=== PATIENT | female | born 1980 | race African-American/Black ===

== ENCOUNTER 2017-10-16 23:56 | Emergency (ER) | payer SELFPAY ==
[2017-10-17] MEDS ORDERED: Ibuprofen 800 MG TAB ONE (01:21)
== END 2017-10-17 01:22 | disposition home or self-care (01) ==
LOC: ERS 23:56
DX: L03.221 Cellulitis of neck (principal); E66.9 Obesity, unspecified; J45.909 Unspecified asthma, uncomplicated
CPT/HCPCS: 36416; 99283

== ENCOUNTER 2017-11-06 18:28 | Emergency (ER) | payer SELFPAY | END 2017-11-06 19:14 | disposition left against medical advice (07) | LOC: ERS 18:28 | DX: Z53.21 Procedure and treatment not carried out due to patient leaving prior to being seen by health care provider (principal) ==

== ENCOUNTER 2017-11-13 12:18 | Inpatient (IN) | payer MEDICAID, SELFPAY ==
[2017-11-13] MEDS ORDERED: Albuterol Sulfate 2.5 mg/0.5 ml Neb ONE (12:51)
[2017-11-13] MEDS ORDERED: Albuterol Sulfate 2.5 mg/3 ml Neb ONE (12:51)
[2017-11-13] MEDS ORDERED: methylPREDNISolone Sod Succ/PF 125 MG/2 ML VIAL ONE (12:53)
[2017-11-13 13:18] LABS: Hemoglobin 13.9 g/dL (12.0-16.0); Mean Corpuscular HGB CONC 32.1 g/dL (32.0-36.0); Mean Corpuscular Volume 87.3 fl (81.0-99.0); Mean Platelet Volume 7.6 fL (7.4-10.4); Platelet Count 327 thou/uL (130-400); Red Blood Cell (RBC) Count 4.94 mill/uL (4.20-5.40)
[2017-11-13 13:29] LABS: ALT (SGPT) 19 U/L (8-55); AST (SGOT) 24 U/L (5-34); Albumin 3.9 g/dL (3.5-5.0); Alkaline Phosphatase 84 U/L (40-150); Anion Gap 12 mmol/L (10-20); BUN (Urea Nitrogen) 12 mg/dL (7.0-18.7); Bilirubin, Total 0.3 mg/dL (0.2-1.2); Calc. Creatinine Clearance 0 mL/min (70-130); Calcium 9.2 mg/dL (7.8-10.44); Carbon Dioxide 25 mmol/L (22-29); Chloride 104 mmol/L (98-107); Estimated GFR-MDRD Greater than 90; Globulin 3.7 g/dL (2.4-3.5); Glucose 91 mg/dL (70-105); Potassium 4.1 mmol/L (3.5-5.1); Protein, Total 7.6 g/dL (6.0-8.3); Sodium 137 mmol/L (136-145)
--- NOTE | 2017-11-13 13:33 | RAD ---
CHEST 1 VIEW: HISTORY: A 37-year-old female with a history of shortness of breath. And dyspnea. COMPARISON: 03/26/17. FINDINGS: There is some bilateral vascular congestion. There are some patchy linear and interstitial parenchym al changes in the perihilar regions bilaterally, somewhat more prominent in the left suprahilar regio n raising concern for the possibility of some early pneumonia or pneumonitis. Heart size is within n ormal limits. No overt pleural effusion. IMPRESSION: Some bilateral vascular congestion. Increased markings in the left suprahilar region raising concern for minimal or early pneumonia or pneumonitis. Correlate clinically. Consider short-term followup upright PA and lateral chest for further assessment. POS: OFF
[2017-11-13 13:43] LABS: Band 1 % (5-11); Lymphocytes 14 % (21-51); MDiff Complete? YES; Monocytes 8 % (0-10); Neutrophil 77 % (42-75); PLT Morphology Comment Appears Adequate
[2017-11-13] MEDS ORDERED: Azithromycin 250 MG TAB ONE (13:56)
--- NOTE | 2017-11-13 15:38 | CON ---
DATE OF CONSULTATION: 11/13/2017 EMERGENCY ROOM CONSULTATION PRIMARY CARE PHYSICIAN: Tony Dorantes. REASON FOR CONSULTATION: Asthma exacerbation. HISTORY OF PRESENT ILLNESS: A 37-year-old -Serbian female, who has underlying morbid obesity and mild persistent asthma, who came to the emergency room for the last 2 days increasing shortness of breath associated with cough productive of white sputum. She was also having wheezing, especially during nighttime. She was also having cough, which was getting worse during nighttime. She was als o feeling more shortness of breath during nighttime. On exertion and while walking, she was feeling wheezing and she was feeling chest tightness. She was also having a subjective low-grade fever. She denies any flu-like illness. She denies any sick exposures. She denies any nausea, vomiting, or di arrhea. She does not have any palpitation, dizziness or syncope. She denies any calf tenderness. S he denies any pleuritic chest pain. She denies any constipation, diarrhea, melena or hematochezia. The patient reports that normally she uses her inhaler and nebulizer medication, but she ran out all medication and that is why she was getting worse. In the emergency room, this patient was saturating 95% on room air. She was able to talk in full sen tences. She was tachycardic after breathing treatment in the emergency room. She was hemodynamicall y stable. Chest x-ray showed left upper lobe infiltration and suspected for community-acquired pneumonia and th at is why the patient has received Rocephin and azithromycin in the emergency room. The patient is a lso given Solu-Medrol 125 mg, IV fluid 1 liter, DuoNeb therapy, and Proventil nebulization therapy. ER physician decided to admit this patient in the hospital for asthma exacerbation and community-acqu ired pneumonia. When I saw this patient in the emergency room, the patient was completely comfortabl e. She was able to talk in full sentences. She was saturating normal. The patient has 3 kids who a re very small and she needs to take care of them at home and she does not have any technical services analyst and the patient does not want to stay in hospital. I explained to her that it is possible that her asthma can get worse and she may end up with respirat ory distress and required intubation, but she is expressing her wish that she will go home with the m edication and she will try oral medication. If she does not feel well, then she will try to come karri k to the emergency room later on. At this point in the emergency room, I decided to send her home with all new medication as above and sent prescription to Lisa at [facility] in [place] and explained her to come back if her condition d oes not improve. REVIEW OF SYSTEMS: The following complete review of systems was negative, unless otherwise mentioned in the HPI or below: Constitutional: Weight loss or gain, ability to conduct usual activities. Skin: Rash, itching. Eyes: Double vision, pain. ENT/Mouth: Nose bleeding, neck stiffness, pain, tenderness. Cardiovascular: Palpitations, dyspnea on exertion, orthopnea. Respiratory: Shortness of breath, wheezing, cough, hemoptysis, fever or night sweats. Gastrointestinal: Poor appetite, abdominal pain, heartburn, nausea, vomiting, constipation, or diarr hea. Genitourinary: Urgency, frequency, dysuria, nocturia. Musculoskeletal: Pain, swelling. Neurologic/Psychiatric: Anxiety, depression. Allergy/Immunologic: Skin rash, bleeding tendency. Please see my HPI for pertinent positives and negatives. All other review of systems reviewed and ne gative except as mentioned in the HPI. ALLERGIES: No known drug allergy. CURRENT HOME MEDICATIONS: The patient is supposed to be on Ventolin nebulization q.4 hourly, Provent il HFA 2 puffs q.4 hourly, Pulmicort Flexhaler 2 puffs inhalation b.i.d., but she ran out all medicat ion. She does not have any medication at this point at home. PAST MEDICAL HISTORY: Morbid obesity, mild persistent asthma. PAST SURGICAL HISTORY: x3. PAST PSYCHIATRIC HISTORY: Reviewed and negative. SOCIAL HISTORY: The patient is smoking variable quantity of cigarette on a daily basis. She denies any alcohol abuse. She denies any illicit drug abuse. FAMILY HISTORY: No strong family history of premature coronary artery disease, stroke or cancer. EMERGENCY ROOM COURSE: The patient has received Rocephin, azithromycin, Solu-Medrol 125 mg, IV fluid s, DuoNeb therapy, and albuterol nebulization. PHYSICAL EXAMINATION: GENERAL: When I saw this patient, at the time, the patient is no acute distress, able to talk in ful l sentences. No accessory muscles of respiration in use. The patient is currently alert, awake, in no obvious acute distress. VITALS SIGNS: Blood pressure 137/86, pulse 103, respiratory rate 22, temperature 99.4, saturation 95 % on room air, weight 121.5 kilograms. HEENT: Head: Normocephalic, atraumatic. Eyes: Pupils round, reactive to light. Extraocular muscl es are intact. ENT: Oropharynx within normal limits. Moist mucous membranes. No oral lesions. No pharyngeal erythema, no exudate. NECK: Supple, no JVD, no thyromegaly, no carotid bruit. LUNGS: Few end expiratory wheezing heard, but no rhonchi and no rales. CARDIAC: S1, S2 regular. No murmur, no gallop, no rub. Slight tachycardia. Chest wall, no accesso ry muscles of respiration in use. ABDOMEN: Morbid obesity limiting examination. No suprapubic tenderness, no peritoneal sign, no guar ding, no rigidity, no rebound. BACK: Unremarkable, no CVA tenderness. EXTREMITIES: Upper extremities: Passive movements of all joints are normal. Lower extremities: No edema. Good peripheral pulsation. SKIN: No skin rash. HEMATOLOGIC: No lymphadenopathy. PSYCHIATRIC: Normal affect. SIGNIFICANT LABORATORY DATA: Chest x-ray showing left upper lobe infiltration, pulmonary vascular co ngestion. CBC: WBC 10.0, hemoglobin 13.9, platelets 327 with 1 band. BMP: Sodium 137, potassium 4 .1, chloride 104, carbon dioxide 25, anion gap 12, BUN 12, creatinine 0.71, glucose 91, calcium 9.2. LFT: AST 24, ALT 19, alkaline phosphatase 84, albumin 3.9, and lactic acid 0.9. IMPRESSION: 1. Acute asthma exacerbation, mild, in view of mild persistent asthma likely precipitated by underly ing community-acquired pneumonia. 2. Mild community-acquired pneumonia. 3. Morbid obesity. 4. Tobacco abuse disorder. PLAN: I discussed with the patient about the importance of staying in the hospital, so we can treat her at least observation status versus inpatient status for the next day or two with Solu-Medrol, Duo Neb therapy, and empiric antibiotic therapy, but this patient does not have anybody to take care of h er kids and that is why she prefers to go home. I explained her risk of respiratory distress and com ing back with worse situation, but she expressed her wish to go home with a prescription medication. Per her request, I am prescribing Pulmicort Flexhaler, albuterol nebulization solution for her nebul izer machine and prednisone 40 mg p.o. daily for 7 days and Levaquin 750 mg p.o. daily for 7 days angelito ng with Mucinex 600 mg twice daily for 7 days. The patient is given counseling to avoid smoking. Th e patient is also given education about if her condition does not improve with this treatment, then s he should returned back to the emergency room for admission. I explained at length to stay in the hospital, but she does not want to stay in the hospital and that is why per her request, we decided to discharge her from the emergency room. At this point, the pat ient is also stable in the form of she is not in respiratory distress. Her saturation is normal on r oom air and she is able to talk in full sentences. We are hoping that with outpatient treatment, she will improve and I advised her to follow up with primary care physician for repeat chest x-ray to se e clearance of pneumonia. Deep venous thrombosis prophylaxis not needed because we are planning to discharge from the ER. Jagruti rointestinal prophylaxis not needed because we are planning to discharge from ER and the patient is a dvised to use Pepcid [id number] on a p.r.n. basis. CODE STATUS: The patient is a FULL CODE. She does not have any surrogate decision maker. DISPOSITION PLAN: We were consulted from ER for admission, but we decided [facility].
== END 2017-11-13 14:54 | disposition home or self-care (01) | DRG 194 ==
LOC: ERS 12:18 → ERHOLD 14:00
PROVIDERS: ADMIT Internal Medicine; ATTEND Internal Medicine
DX: J18.9 Pneumonia, unspecified organism (principal); J45.31 Mild persistent asthma with (acute) exacerbation; E66.01 Morbid (severe) obesity due to excess calories; Z79.51 Long term (current) use of inhaled steroids; F17.210 Nicotine dependence, cigarettes, uncomplicated
CPT/HCPCS: 36415; 71045; 80053; 83605; 85025; 87040; 94640; 94644; 96361; 96374; 96375; J0696; J2930; J7611; J7620

== ENCOUNTER 2018-10-14 04:53 | Emergency (ER) | payer MEDICAID, OTHER | END 2018-10-14 07:42 | disposition home or self-care (01) | LOC: ERS 04:53 | DX: G89.29 Other chronic pain (principal); M54.5 Low back pain; J45.909 Unspecified asthma, uncomplicated; F17.210 Nicotine dependence, cigarettes, uncomplicated | CPT/HCPCS: 99283 ==

== ENCOUNTER 2018-10-19 01:11 | Emergency (ER) | payer OTHER ==
[2018-10-19] MEDS ORDERED: Fluorescein Opthalmic Strip ONE (02:08)
[2018-10-19] MEDS ORDERED: Proparacaine 0.5% Opth 15 ML BOT ONE (02:08)
== END 2018-10-19 02:45 | disposition home or self-care (01) ==
LOC: ERS 01:11
DX: H10.9 Unspecified conjunctivitis (principal); J45.909 Unspecified asthma, uncomplicated; F17.210 Nicotine dependence, cigarettes, uncomplicated
CPT/HCPCS: 99283

== ENCOUNTER 2018-10-24 00:46 | Emergency (ER) | payer OTHER ==
[2018-10-24] MEDS ORDERED: cefTRIAXone\\ROCEPHIN 1 GM VIAL ONE (02:05)
[2018-10-24] MEDS ORDERED: Lidocaine 1% PF 5 ML VIAL ONE (02:05)
== END 2018-10-24 02:35 | disposition home or self-care (01) ==
LOC: ERS 00:46
DX: J45.909 Unspecified asthma, uncomplicated (principal); F17.210 Nicotine dependence, cigarettes, uncomplicated; L03.213 Periorbital cellulitis
CPT/HCPCS: 96372; J0696; J2001

== ENCOUNTER 2019-01-29 23:47 | Inpatient (IN) | payer OTHER ==
[2019-01-29] MEDS ORDERED: Ondansetron ODT 4 MG TAB ONE (23:53)
[2019-01-30] MEDS ORDERED: Morphine 4 MG/ML VIAL ONE (00:12)
[2019-01-30] MEDS ORDERED: Ketorolac Tromethamine 30 MG/ML VIAL ONE (00:12)
[2019-01-30] MEDS ORDERED: Ondansetron PF 4 MG/2 ML Vial ONE (00:13)
[2019-01-30 00:18] LABS: #Basophils 0.1 thou/uL (0.0-0.2); #Eosinphils 0.3 thou/uL (0.0-0.7); #Lymphocytes 3.5 thou/uL (1.20-3.40); #Neutrophils 6.5 thou/uL (1.40-6.50); %Basophils 0.8 % (0.0-1.0); %Eosinophils 2.8 % (0.0-10.0); %Lymphocytes 30.9 % (21.0-51.0); %Monocytes 9.1 % (0.0-10.0); %Neutrophils 56.5 % (42.0-75.0); Hemoglobin 13.8 g/dL (12.0-16.0); Mean Corpuscular HGB CONC 31.9 g/dL (32.0-36.0); Mean Corpuscular Volume 87.7 fL (78.0-98.0); Mean Platelet Volume 7.4 fL (7.4-10.4); Platelet Count 337 thou/uL (130-400); RBC Distribution Width 13.4 % (11.5-14.5); Red Blood Cell (RBC) Count 4.92 mill/uL (4.20-5.40); White Blood Cell (WBC) Count 11.5 thou/uL (4.8-10.8)
[2019-01-30 00:22] LABS: BHCG - Serum Negative (NEGATIVE); Pregs Control Background? CLEAR/WHITE (CLR/WHITE); Pregs Control Bar Appear? YES (CONTROL BAR)
[2019-01-30 00:30] LABS: ALT (SGPT) 12 U/L (8-55); AST (SGOT) 14 U/L (5-34); Albumin 3.8 g/dL (3.5-5.0); Alkaline Phosphatase 80 U/L (40-150); Anion Gap 12 mmol/L (10-20); BUN (Urea Nitrogen) 12 mg/dL (7.0-18.7); Bilirubin, Total 0.3 mg/dL (0.2-1.2); Calc. Creatinine Clearance 0 mL/min (70-130); Calcium 9.1 mg/dL (7.8-10.44); Carbon Dioxide 23 mmol/L (22-29); Chloride 108 mmol/L (98-107); Estimated GFR-MDRD Greater than 90; Globulin 3.5 g/dL (2.4-3.5); Glucose 113 mg/dL (70-105); Lipase 24 U/L (8-78); Potassium 3.7 mmol/L (3.5-5.1); Protein, Total 7.3 g/dL (6.0-8.3); Sodium 139 mmol/L (136-145)
[2019-01-30] MEDS ORDERED: Piperacillin/Tazobactam 4.5 GM VIAL ONE (02:26)
--- NOTE | 2019-01-30 04:18 | RAD ---
XR Chest 1 View Portable HISTORY: Preop COMPARISON: 11/03/2017 study FINDINGS: Heart size is borderline. There are linear parenchymal changes extending from the left hilu m which may represent scar. No confluent infiltrative process seen. IMPRESSION: Borderline heart size with linear parenchyma changes extending from the left hilum consis tent with atelectasis or scar
--- NOTE | 2019-01-30 07:30 | CT ---
ABDOMEN AND PELVIS CT WITHOUT CONTRAST: INDICATION: Abdominal pain, new onset with nausea, vomiting, and diarrhea. FINDINGS: No prior comparison available. There is mosaic attenuation of the imaged lung bases, nonspecific and incompletely evaluated. There is marked prominence of the gallbladder wall with associated increased density and evidence of architectural intern al rim calcification indicative of cholelithiasis. Additional underlying pathology such as mass haile ot be entirely excluded on the basis of this exam and should be further interrogated with a gallbladd er ultrasound, particularly in light of the associated clinical symptoms. Noncontrast assessment reveals no evidence of urolithiasis or obstructive uropathy. Several scattere d nonspecific borderline-sized retroperitoneal lymph nodes are seen predominantly in the aortocaval d istribution. The remainder of the abdominal and pelvic contents are limited in assessment on the bas is of noncontrast technique. No evidence of acute osseous pathology. No free air. There is a bowel containing hernia of the ventral low abdominal wall at midline, containing noninflam ed bowel. IMPRESSION: 1. Marked abnormality of the gallbladder as above. Dedicated gallbladder ultrasound is warranted. 2. No urolithiasis or obstructive uropathy. 3. Bowel containing hernia of the ventral low abdominal wall, at the midline without associated infl ammation identified by noncontrast technique. CODE T POS: RACHANA
--- NOTE | 2019-01-30 07:40 | ULT ---
GALLBLADDER ULTRASOUND: INDICATION: Abdominal pain with nausea, vomiting, and diarrhea new onset. COMPARISON: Reference is made to preceding CT abdomen and pelvis of 01/30/2019 as well as a prior ultrasound of the gallbladder 04/12/2009. FINDINGS: There is multifocal increased echogenicity within the gallbladder lumen. The gallbladder wall is bor derline approximating 3 mm in thickness. Slight degree of pericholecystic edema is present. There i s prominent volume of the liver with increased echogenicity which may be on the basis of hepatic stea tosis. Dunne's sign reported as negative by flavoring oil filterer. The common duct is normal measuring 3 mm i n diameter. IMPRESSION: Multifocal cholelithiasis. There is borderline-sized gallbladder wall and suggestion of a slight deg ree of pericholecystic edema. Recommend clinical correlation for evidence of cholecystitis. Surgica l consultation would also prove useful in this regard. If there is concern for acute cystic duct obs truction, nuclear medicine HIDA scan would prove beneficial. POS: RACHANA
== END 2019-01-30 05:30 | disposition left against medical advice (07) | DRG 446 ==
LOC: ERS 23:47 → SURG B 01-30 03:30
PROVIDERS: ADMIT Surgery; ATTEND Surgery
DX: K81.0 Acute cholecystitis (principal); J45.909 Unspecified asthma, uncomplicated; Z98.51 Tubal ligation status
CPT/HCPCS: 36415; 71045; 74176; 76705; 80053; 83690; 84703; 85025; 93005; J1885; J2270; J2405; J2543; Q0162

== ENCOUNTER 2019-01-31 15:25 | Inpatient (IN) | payer OTHER ==
--- NOTE | 2019-01-31 16:09 | RAD ---
EXAM: CHEST ONE VIEW: 01/31/19 HISTORY: Chest pain. COMPARISON: 01/30/19. FINDINGS: Upper range of normal sized heart with some minimal linear parenchymal changes in the left mid lung z one, stable. No confluent pneumonia, overt edema, or pleural effusion. IMPRESSION: Stable chest. POS: C
[2019-01-31 16:21] LABS: #Basophils 0.1 thou/uL (0.0-0.2); #Eosinphils 0.3 thou/uL (0.0-0.7); #Lymphocytes 2.9 thou/uL (1.20-3.40); #Monocytes 1.1 thou/uL (0.11-0.59); #Neutrophils 10.8 thou/uL (1.40-6.50); %Basophils 0.4 % (0.0-1.0); %Lymphocytes 18.9 % (21.0-51.0); %Neutrophils 71.7 % (42.0-75.0); Hemoglobin 13.1 g/dL (12.0-16.0); Mean Corpuscular HGB CONC 32.4 g/dL (32.0-36.0); Mean Corpuscular Hemoglobin 28.3 pg (27.0-31.0); Mean Corpuscular Volume 87.3 fL (78.0-98.0); Mean Platelet Volume 7.7 fL (7.4-10.4); Platelet Count 322 thou/uL (130-400); RBC Distribution Width 13.4 % (11.5-14.5); Red Blood Cell (RBC) Count 4.63 mill/uL (4.20-5.40)
[2019-01-31] MEDS ORDERED: Ondansetron PF 4 MG/2 ML Vial ONE (16:27)
[2019-01-31] MEDS ORDERED: Piperacillin/Tazobactam 4.5 GM VIAL ONE (16:27)
[2019-01-31] MEDS ORDERED: Morphine 4 MG/ML VIAL ONE (16:27)
[2019-01-31 16:33] LABS: ALT (SGPT) 12 U/L (8-55); AST (SGOT) 13 U/L (5-34); Albumin 3.8 g/dL (3.5-5.0); Alkaline Phosphatase 78 U/L (40-150); Anion Gap 13 mmol/L (10-20); BUN (Urea Nitrogen) 6 mg/dL (7.0-18.7); Bilirubin, Total 0.6 mg/dL (0.2-1.2); Calc. Creatinine Clearance 0 mL/min (70-130); Calcium 9.1 mg/dL (7.8-10.44); Carbon Dioxide 22 mmol/L (22-29); Chloride 106 mmol/L (98-107); Estimated GFR-MDRD Greater than 90; Globulin 3.4 g/dL (2.4-3.5); Glucose 110 mg/dL (70-105); Potassium 3.5 mmol/L (3.5-5.1); Protein, Total 7.2 g/dL (6.0-8.3); Sodium 137 mmol/L (136-145)
[2019-01-31 16:50] LABS: Bilirubin Negative (Negative); Blood, Urine Trace (Negative); Clarity CLEAR (Clear); Glucose, Urine (Dipstick) Negative (Negative); Leukocyte Negative (Negative); Nitrite Negative (Negative); Protein, Urine (Dipstick) Negative (Neg-Trace); Specific Gravity, Urine 1.014 (1.002-1.036)
[2019-01-31 16:52] LABS: Bacteria/HPF None Seen HPF (None Seen); Hyaline Casts/LPF 0-3 HYALINE CAST LPF (0-3 Hyaline); Squamous Epithelial 0-3 HPF (0-3); WBC/HPF 0-3 HPF (0-3)
[2019-01-31] MEDS ORDERED: Bupivacaine/Epinephrine 0.25% 30 ML VIAL ONE (17:24)
--- NOTE | 2019-01-31 18:08 | HP ---
CHIEF COMPLAINT: Right upper quadrant abdominal pain with nausea and vomiting. HISTORY OF PRESENT ILLNESS: The patient is a morbidly obese 38-year-old black female. She presented to the emergency room the night before last, complaining of severe upper abdominal pain. She had evaluation with CT scan and ultrasound revealing cholelithiasis with no evidence of ductal dilatation. Liver function tests were normal, but she had slight elevation of white blood cell count. She was felt to be stable for discharge to follow up for outpatient surgery. Unfortunately, today she developed progressive abdominal pain with nausea. She presented to the emergency room for further evaluation. LABORATORY STUDIES: Revealed her white blood cell count has gone up further to 15,000, hemoglobin is stable at 13. Liver function tests remain normal as all her electrolytes. PAST MEDICAL HISTORY: Significant for morbid obesity. PAST SURGICAL HISTORY: Three C sections and one tubal ligation. MEDICATIONS: None. ALLERGIES: NO KNOWN DRUG ALLERGIES. PERSONAL SOCIAL HISTORY: She is single with 4 children. She lives in [place]. She smokes 1/2 pack per day of cigarettes. She does not work outside the house. Her primary care physician is Elizabeth Walker. FAMILY HISTORY: Noncontributory. REVIEW OF SYSTEMS: Ten system review was obtained, is otherwise unremarkable. PHYSICAL EXAMINATION: VITAL SIGNS: She is afebrile. Currently appeared her pulse is slightly elevated at 100. Her blood pressure is within normal limits. GENERAL: She is a well-developed, well-nourished, obese female. She is 5 feet 2 inches tall and weighs 250 pounds. She is alert and oriented x3, and cooperative. Multiple family members are present at bedside. HEAD, EYES, EARS, NOSE, AND THROAT: Unremarkable. NECK: Supple without mass or tenderness. LUNGS: Clear to auscultation throughout. CARDIAC: Regular rate and rhythm without murmur. ABDOMEN: Soft with focal tenderness in the right upper quadrant. She has a well-healed midline abdominal incision. EXTREMITIES: Unremarkable. ASSESSMENT: The patient with acute cholecystitis. PLAN: Laparoscopic cholecystectomy. I have discussed the operation in detail with the patient as well as potential risks. She understands and agrees to proceed with surgery at this time. Job ID: [id number]
[2019-01-31] MEDS ORDERED: Fentanyl 100 MCG/2 ML VIAL ONE ×2 (18:18→20:51)
[2019-01-31] MEDS ORDERED: SUGAMMADEX SODIUM 200 MG/2 ML VIAL ONE (19:55)
[2019-01-31] MEDS ORDERED: Ketorolac Tromethamine 30 MG/ML VIAL ONE (20:51)
--- NOTE | 2019-02-01 07:12 | OP ---
DATE OF PROCEDURE: 01/31/2019 PREOPERATIVE DIAGNOSIS: Acute cholecystitis. POSTOPERATIVE DIAGNOSIS: Acute cholecystitis with extensive midline abdominal adhesions. OPERATION PERFORMED: Laparoscopic cholecystectomy. ANESTHESIA: General endotracheal. INDICATIONS: The patient is a 38-year-old morbidly obese black female. She presented to the hospital with right upper quadrant abdominal pain, leukocytosis, ultrasound-proven cholelithiasis. She was taken to the operative room at this time for laparoscopic cholecystectomy. DESCRIPTION OF OPERATION: Informed consent was obtained. The patient was taken to the operating room where general endotracheal anesthesia was obtained with patient in supine position. Abdomen was prepped with ChloraPrep and draped in sterile fashion. Local anesthetic was infiltrated using 0.25% Marcaine with epinephrine and 5-mm right upper quadrant incision was created, through which a Veress needle was passed in the peritoneal cavity and pneumoperitoneum was established using carbon dioxide up to pressure of 15 mmHg. A 5-mm trocar port was passed through the same incision. Laparoscopic camera was passed through this port. The patient was recognized to have dense adhesions to the anterior abdominal wall extending inferiorly from the falciform ligament. I placed two additional 5-mm right upper quadrant ports in a somewhat usual location under direct vision. Using these ports, I took down some of the adhesions to the anterior abdominal wall. Some of these were quite dense and as I moved more towards the midline, there was obviously bowel involved. She had also been recognized to have a hernia at the midline from her previous imaging. At the point that I felt that it was safe and I had adequate exposure, I placed an 11-mm port to the right of midline and significantly superior to the umbilicus. The camera was replaced through this port. Operation was continued. The gallbladder was visualized and noted to be acutely inflamed. I initially could not grasp this. I therefore used the aspiration needle. Unfortunately, the contents were far too thick to go through the aspiration needle. I therefore had to create an opening in the fundus of the gallbladder and used a suction device to remove the thick bilious contents such that I could then grasp the gallbladder. The patient also had a large fatty liver. This made grasping the gallbladder and moving it more difficult. I was eventually able to grasp the fundus of the gallbladder and retract in a cephalad direction. The infundibulum was grasped and retracted laterally and inferiorly. Careful dissection was carried out at the apex of the gallbladder. I carefully identified the cystic duct and cystic artery, dissected both of these and divided between clips leaving 2 on the side to remain within the abdomen. The duct was small and noninflamed. Cholangiogram was not obtained. The gallbladder was then dissected out of the gallbladder fossa with significant difficulty using electrocautery. I was eventually able to dissect the gallbladder off the liver and this was then removed through the 11-mm port site. Stones had to be removed from the gallbladder to allow extraction. The gallbladder was significantly thickened throughout. The fascial defect was closed with 0 Vicryl suture using a GraNee needle. The right upper quadrant was copiously irrigated. All irrigant was aspirated. There was no evidence of any residual bleeding from the gallbladder fossa. All ports and instruments were removed under direct vision. Pneumoperitoneum was carefully evacuated. 0.25% Marcaine with epinephrine was infiltrated into each port site and the skin edges were approximated with 4-0 Monocryl subcuticular suture. Dermabond was placed externally. There were no complications. The patient tolerated the procedure well and was taken to recovery room in stable condition. Job ID: [id number]
== END 2019-01-31 22:06 | disposition home or self-care (01) | DRG 418 ==
LOC: ERS 15:25 → ERHOLD 16:53 → SURG A 17:42
PROVIDERS: ADMIT Specialist; ATTEND Specialist
PROC: 0FT44ZZ Resection of Gallbladder, Percutaneous Endoscopic Approach (ICD-10-PCS; principal; 2019-01-31)
DX: K80.00 Calculus of gallbladder with acute cholecystitis without obstruction (principal); Z68.42 Body mass index [BMI] 45.0-49.9, adult; F17.210 Nicotine dependence, cigarettes, uncomplicated; E66.01 Morbid (severe) obesity due to excess calories; K76.0 Fatty (change of) liver, not elsewhere classified
CPT/HCPCS: 36415; 71045; 80053; 81003; 81015; 83605; 85025; 87040; 87086; 93005; 94760; J1885; J2270; J2405; J2543; J3010; J3370

== ENCOUNTER 2019-06-28 08:02 | Emergency (ER) | payer OTHER ==
[2019-06-28] MEDS ORDERED: methylPREDNISolone Sod Succ/PF 125 MG/2 ML VIAL ONE (08:45)
[2019-06-28] MEDS ORDERED: Famotidine/PF 20 mg/2ml Vial ONE (08:45)
[2019-06-28] MEDS ORDERED: diphenhydrAMINE 50 MG/ML VIAL ONE (08:45)
== END 2019-06-28 10:09 | disposition home or self-care (01) ==
LOC: ERS 08:02
DX: T78.40XA Allergy, unspecified, initial encounter (principal); L30.9 Dermatitis, unspecified; J45.909 Unspecified asthma, uncomplicated; F17.210 Nicotine dependence, cigarettes, uncomplicated
CPT/HCPCS: 96374; 96375; J1200; J2930; S0028

== ENCOUNTER 2019-08-26 17:39 | Emergency (ER) | payer OTHER ==
[2019-08-26] MEDS ORDERED: predniSONE 20 MG TAB ONE (20:08)
--- NOTE | 2019-08-26 21:14 | RAD ---
CHEST TWO VIEWS: Comparison: 01-31-19 History: Cough, wheezing. FINDINGS: Normal cardiac silhouette. The pulmonary vessels are within normal limits. Costophrenic angles are cl ear. Patchy interstitial opacities, without consolidation or mass. No pneumothorax or osseous abnorma lities. IMPRESSION: Patchy interstitial opacities likely representing interstitial infiltrate. POS: [facility]
== END 2019-08-26 21:15 | disposition home or self-care (01) ==
LOC: ERS 17:39
DX: J45.901 Unspecified asthma with (acute) exacerbation (principal); Z71.6 Tobacco abuse counseling; Z87.891 Personal history of nicotine dependence
CPT/HCPCS: 71046; 87804; 94640; J7512; J7620

== ENCOUNTER 2020-06-16 13:24 | Emergency (ER) | payer OTHER | END 2020-06-16 14:15 | disposition home or self-care (01) | LOC: ERS 13:24 | DX: L02.212 Cutaneous abscess of back [any part, except buttock and flank] (principal); J45.909 Unspecified asthma, uncomplicated; Z87.891 Personal history of nicotine dependence | CPT/HCPCS: 99282 ==

== ENCOUNTER 2020-07-01 13:36 | Outpatient (CLI) | payer OTHER ==
--- NOTE | 2020-07-01 14:12 | RAD ---
PA AND LATERAL VIEWS CHEST: Date: 07/01/2020 HISTORY: Dyspnea. COMPARISON: 08/26/2019. FINDINGS: The heart size is normal. The lungs are well expanded without lobar consolidation, pneumothoraces, or pleural effusions. IMPRESSION: No acute process. POS: [facility]
== END 2020-07-01 13:37 | disposition home or self-care (01) ==
LOC: BICRAD 13:36
PROVIDERS: ATTEND Internal Medicine Pulmonary Disease
DX: R06.00 Dyspnea, unspecified (principal)
CPT/HCPCS: 71046

== ENCOUNTER 2021-07-04 10:29 | Inpatient (IN) | payer OTHER ==
[2021-07-04] MEDS ORDERED: Ketamine 50 MG/ML (10ML VIAL) ONE (10:38)
[2021-07-04] MEDS ORDERED: Dexamethasone 4 mg/ml Vial ONE (10:38)
[2021-07-04] MEDS ORDERED: Magnesium 2 GM/50 ML BAG (IN WATER) ONE (10:38)
[2021-07-04] MEDS ORDERED: cefTRIAXone\\ROCEPHIN 2 GM VIAL ONE (10:51)
[2021-07-04 10:54] LABS: #Basophils 0.1 thou/uL (0.0-0.2); #Eosinphils 0.1 thou/uL (0.0-0.7); #Lymphocytes 5.1 thou/uL (1.20-3.40); #Neutrophils 11.1 thou/uL (1.40-6.50); %Basophils 0.5 % (0.0-1.0); %Eosinophils 0.5 % (0.0-10.0); %Lymphocytes 27.6 % (21.0-51.0); %Monocytes 11.1 % (0.0-10.0); %Neutrophils 60.3 % (42.0-75.0); Hemoglobin 14.1 g/dL (12.0-16.0); Mean Corpuscular HGB CONC 30.9 g/dL (32.0-36.0); Mean Corpuscular Hemoglobin 27.2 pg (27.0-31.0); Mean Corpuscular Volume 88.1 fL (78.0-98.0); Mean Platelet Volume 7.7 fL (7.4-10.4); Platelet Count 397 thou/uL (130-400); RBC Distribution Width 15.3 % (11.5-14.5); Red Blood Cell (RBC) Count 5.18 mill/uL (4.20-5.40); White Blood Cell (WBC) Count 18.3 thou/uL (4.8-10.8)
[2021-07-04] MEDS ORDERED: Albuterol Sulfate 2.5 mg/0.5 ml Neb ONE (10:54)
[2021-07-04] MEDS ORDERED: Albuterol Sulfate 2.5 mg/3 ml Neb ONE (10:54)
[2021-07-04 11:01] LABS: Actual Bicarbonate (HCO3a) 28.1 mEq/L (22-28); Analyzer IN Cardio ER; Base Excess (BEa) -0.2 mEq/L (-2.0 to +3.0); Calcium, Ionized (arterial) 1.19 mmol/L (1.12-1.30); Carboxyhemoglobin (COHb) 1.7 gm% (0.0-3.0); O2 Tension (PaO2), arterial 82.1 mmHg (80.0-100.0); Potassium - ABG Lab 3.87 mmol/L (3.70-5.30); pH, Arterial 7.27 (7.35-7.45)
[2021-07-04 11:02] LABS: ALV-art Gradient 124.975 mmHg (0-20); CO2 Tension 62.5 mmHg (35.0-45.0); Puncture Site LRA
[2021-07-04 11:14] LABS: ALT (SGPT) 21 U/L (8-55); AST (SGOT) 30 U/L (5-34); Albumin 4.1 g/dL (3.5-5.0); Alkaline Phosphatase 93 U/L (40-110); Anion Gap 13 mmol/L (10-20); BUN (Urea Nitrogen) 14 mg/dL (7.0-18.7); Bilirubin, Total 0.3 mg/dL (0.2-1.2); CK (CPK) 533 U/L (29-168); Calc. Creatinine Clearance 0 mL/min (70-130); Calcium 9.6 mg/dL (7.8-10.44); Carbon Dioxide 28 mmol/L (22-29); Chloride 105 mmol/L (98-107); Globulin 4.2 g/dL (2.4-3.5); Glucose 127 mg/dL (70-105); Lipase 14 U/L (8-78); Potassium 4.4 mmol/L (3.5-5.1); Protein, Total 8.3 g/dL (6.0-8.3); Sodium 142 mmol/L (136-145)
[2021-07-04] MEDS ORDERED: Azithromycin 500 MG VIAL ONE (12:14)
[2021-07-04] MEDS ORDERED: Senokot S 8.6-50 MG TAB PO PRN (12:40)
[2021-07-04] MEDS ORDERED: Bisacodyl 10 MG SUPP PR PRN (12:40)
[2021-07-04] MEDS ORDERED: Ondansetron PF 4 MG/2 ML Vial IVP PRN (12:40)
[2021-07-04] MEDS ORDERED: Acetaminophen 325 MG TAB PO PRN (12:40)
[2021-07-04] MEDS ORDERED: Guaifenesin DM 100-10/5 ML UDCUP PO PRN (12:40)
[2021-07-04] MEDS ORDERED: Calcium Carbonate 500 MG ChewTAB PO PRN (12:40)
[2021-07-04 17:26] LABS: SARS-CoV-2 NAA Rapid Test Not Detected (NotDetected)
[2021-07-04] MEDS: methylPREDNISolone Sod Succ 40 MG VIAL IVP SCH ×2 (18:00→23:46)
[2021-07-04] MEDS: Benzonatate 100 MG CAP PO SCH ×2 (18:14→21:58)
[2021-07-04] MEDS ORDERED: methylPREDNISolone Sod Succ 40 MG VIAL ONE ×2 (18:21→23:37)
[2021-07-04] MEDS ORDERED: Levofloxacin 500 mg/D5W 100 ml Premix Bag ONE (18:21)
[2021-07-04] MEDS ORDERED: Benzonatate 100 MG CAP ONE (21:34)
[2021-07-04] MEDS: guaiFENesin ER 600 MG TAB PO SCH (21:58)
[2021-07-04 22:37] LABS: Bacteria/HPF 4+ HPF (None Seen); Bilirubin Negative (Negative); Blood, Urine 2+ (Negative); Clarity Turbid (Clear); Glucose, Urine (Dipstick) 200 mg/dL (Negative); Ketone, Urine Negative (Negative); Leukocyte Negative Leu/uL (Negative); Nitrite Negative (Negative); Protein, Urine (Dipstick) 300 mg/dL (Neg-Trace); Specific Gravity, Urine 1.031 (1.002-1.036); Urobilinogen Normal mg/dL (Less than 2)
[2021-07-05 00:57] VITALS: BMI 49.6
[2021-07-05] MEDS: Mometasone Furoate 120 PUFF 220 MCG INH SCH ×2 (02:11→18:30)
[2021-07-05] MEDS: methylPREDNISolone Sod Succ 40 MG VIAL IVP SCH (06:13)
[2021-07-05 06:19] LABS: #Lymphocytes 2.4 thou/uL (1.20-3.40); #Monocytes 1.3 thou/uL (0.11-0.59); #Neutrophils 14.8 thou/uL (1.40-6.50); %Eosinophils 0.1 % (0.0-10.0); %Monocytes 6.8 % (0.0-10.0); %Neutrophils 80.2 % (42.0-75.0); Hemoglobin 13.1 g/dL (12.0-16.0); Mean Corpuscular HGB CONC 30.2 g/dL (32.0-36.0); Mean Corpuscular Hemoglobin 26.2 pg (27.0-31.0); Mean Corpuscular Volume 86.6 fL (78.0-98.0); Mean Platelet Volume 7.9 fL (7.4-10.4); Platelet Count 352 thou/uL (130-400); RBC Distribution Width 15.6 % (11.5-14.5); White Blood Cell (WBC) Count 18.5 thou/uL (4.8-10.8)
[2021-07-05 06:24] LABS: Hemoglobin A1c 5.5 % (4.0-6.0)
[2021-07-05 06:40] LABS: Anion Gap 14 mmol/L (10-20); BUN (Urea Nitrogen) 21 mg/dL (7.0-18.7); Calc. Creatinine Clearance 176 mL/min (70-130); Calcium 9.6 mg/dL (7.8-10.44); Carbon Dioxide 25 mmol/L (22-29); Chloride 105 mmol/L (98-107); Glucose 146 mg/dL (70-105); Potassium 4.7 mmol/L (3.5-5.1); Sodium 139 mmol/L (136-145)
[2021-07-05] MEDS: Benzonatate 100 MG CAP PO SCH ×3 (08:31→19:57)
[2021-07-05] MEDS: Furosemide 20 MG TAB PO SCH ×2 (08:31→14:53)
[2021-07-05] MEDS: NIFEdipine XL 60 MG TAB PO SCH (08:31)
[2021-07-05] MEDS: Enoxaparin Sodium 40 MG/0.4 ML SYRINGE SC SCH (08:31)
[2021-07-05] MEDS: guaiFENesin ER 600 MG TAB PO SCH ×2 (08:32→19:57)
[2021-07-05] MEDS ORDERED: FLU VACC QS2021-22(6MOS UP)/PF 60 MCG/0.5 ML SYRINGE IM ONE (09:00)
[2021-07-05] MEDS ORDERED: predniSONE 20 MG TAB PO SCH (10:00)
[2021-07-06] MEDS: guaiFENesin ER 600 MG TAB PO SCH (08:00)
[2021-07-06] MEDS ORDERED: predniSONE 20 MG TAB PO SCH (08:00)
[2021-07-06] MEDS: Furosemide 20 MG TAB PO SCH (08:00)
[2021-07-06] MEDS: Benzonatate 100 MG CAP PO SCH (08:00)
[2021-07-06] MEDS: Enoxaparin Sodium 40 MG/0.4 ML SYRINGE SC SCH (08:00)
[2021-07-06] MEDS: NIFEdipine XL 60 MG TAB PO SCH (08:01)
[2021-07-06 13:13] VITALS: BP 140/80; TEMP 97.9
== END 2021-07-06 15:01 | disposition home or self-care (01) | DRG 189 ==
LOC: ERS 10:29 → ERHOLD 12:40 → 3SE 07-05 01:48 → T4-A 07-05 12:07
PROVIDERS: ADMIT Internal Medicine; ATTEND Internal Medicine
PROC: 5A09357 Assistance with Respiratory Ventilation, Less than 24 Consecutive Hours, Continuous Positive Airway Pressure (ICD-10-PCS; principal; 2021-07-04)
DX: J96.01 Acute respiratory failure with hypoxia (principal); J45.41 Moderate persistent asthma with (acute) exacerbation; Z68.42 Body mass index [BMI] 45.0-49.9, adult; J81.1 Chronic pulmonary edema; J96.02 Acute respiratory failure with hypercapnia; I10 Essential (primary) hypertension; G47.33 Obstructive sleep apnea (adult) (pediatric); E66.01 Morbid (severe) obesity due to excess calories; I16.0 Hypertensive urgency; Z20.822 Contact with and (suspected) exposure to COVID-19; Z90.49 Acquired absence of other specified parts of digestive tract; Z98.51 Tubal ligation status; Z87.891 Personal history of nicotine dependence
CPT/HCPCS: 36415; 36600; 71045; 80048; 80053; 81003; 81015; 82550; 82805; 83036; 83605; 83690; 83880; 84484; 85025; 87040; 87070; 87205; 93005; 93306; 94640; 94644; 94660; 96365; 96367; 96375; J0456; J0696; J1100; J1650; J1956; J2920; J3475; J7512; J7611; J7620; U0002

== ENCOUNTER 2022-08-04 17:30 | Outpatient (CLI) | payer OTHER | END 2022-08-04 17:31 | disposition home or self-care (01) | LOC: SLEEPLAB 17:30 | PROVIDERS: ATTEND Nurse Practitioner Family | DX: G47.33 Obstructive sleep apnea (adult) (pediatric) (principal); R06.83 Snoring; J45.909 Unspecified asthma, uncomplicated; J98.4 Other disorders of lung; I10 Essential (primary) hypertension; G47.00 Insomnia, unspecified | CPT/HCPCS: 95806 ==

== ENCOUNTER 2022-12-02 19:30 | Outpatient (CLI) | payer OTHER | END 2022-12-02 19:31 | disposition home or self-care (01) | LOC: SLEEPLAB 19:30 | PROVIDERS: ATTEND Nurse Practitioner Family | DX: G47.33 Obstructive sleep apnea (adult) (pediatric) (principal); R09.02 Hypoxemia | CPT/HCPCS: 95811 ==

== ENCOUNTER 2023-01-11 12:29 | Emergency (ER) | payer OTHER ==
[2023-01-11 14:59] LABS: SARS-CoV-2 NAA Rapid Test Not Detected (NotDetected)
== END 2023-01-11 15:20 | disposition home or self-care (01) ==
LOC: ERS 12:29
DX: H66.91 Otitis media, unspecified, right ear (principal); I10 Essential (primary) hypertension; Z20.822 Contact with and (suspected) exposure to COVID-19
CPT/HCPCS: 87081; 87430; 99283

== ENCOUNTER 2023-11-07 17:35 | Emergency (ER) | payer MEDICAID, OTHER ==
[2023-11-07] MEDS ORDERED: Ibuprofen 800 MG TAB ONE (18:36)
[2023-11-07] MEDS ORDERED: Ipratropium/Albuterol 3 ML NEB ONE (18:36)
[2023-11-07] MEDS ORDERED: cefTRIAXone (ROCEPHIN) 2 GM VIAL ONE (18:59)
[2023-11-07] MEDS ORDERED: Azithromycin 500 MG VIAL ONE (19:00)
[2023-11-07] MEDS ORDERED: Sodium Chloride 0.9% 100 ML ONE (19:00)
[2023-11-07 19:25] LABS: SARS-CoV-2 NAA Rapid Test Not Detected (NotDetected)
[2023-11-07 19:50] LABS: #Eosinphils 0.1 thou/uL (0.0-0.7); #Monocytes 1.3 thou/uL (0.11-0.59); #Neutrophils 5.4 thou/uL (1.40-6.50); %Basophils 0.2 % (0.0-1.0); %Eosinophils 0.7 % (0.0-10.0); %Lymphocytes 17.9 % (21.0-51.0); %Monocytes 15.4 % (0.0-10.0); %Neutrophils 65.2 % (42.0-75.0); Hematocrit 43.6 % (36.0-47.0); Hemoglobin 13.6 g/dL (12.0-16.0); Mean Corpuscular HGB CONC 31.2 g/dL (32.0-36.0); Mean Corpuscular Volume 86.5 fl (78.0-98.0); Mean Platelet Volume 9.9 fL (7.4-10.4); Platelet Count 300 10x3/uL (130-400); RBC Distribution Width 14.9 % (11.5-14.5); Red Blood Cell (RBC) Count 5.04 mill/uL (4.20-5.40); White Blood Cell (WBC) Count 8.3 10x3/uL (4.8-10.8)
[2023-11-07 20:08] LABS: ALT (SGPT) 13 U/L (8-55); AST (SGOT) 16 U/L (5-34); Albumin 3.8 g/dL (3.5-5.0); Alkaline Phosphatase 80 U/L (40-110); Anion Gap 13 mmol/L (10-20); BUN (Urea Nitrogen) 12 mg/dL (7.0-18.7); Bilirubin, Total 0.6 mg/dL (0.2-1.2); Calc. Creatinine Clearance 0 mL/min (70-130); Calcium 9.1 mg/dL (7.8-10.44); Carbon Dioxide 25 mmol/L (22-29); Chloride 102 mmol/L (98-107); Estimated GFR 86; Globulin 4.2 g/dL (2.4-3.5); Glucose 89 mg/dL (70-105); Potassium 3.6 mmol/L (3.5-5.1); Sodium 136 mmol/L (136-145)
[2023-11-07 20:13] LABS: Troponin I Less than 0.010 ng/mL (< 0.028)
== END 2023-11-07 20:56 | disposition home or self-care (01) ==
LOC: ERS 17:35
DX: J10.00 Influenza due to other identified influenza virus with unspecified type of pneumonia (principal); J18.9 Pneumonia, unspecified organism; I10 Essential (primary) hypertension; Z87.891 Personal history of nicotine dependence
CPT/HCPCS: 71046; 80053; 83605; 84484; 85025; 87040; 96365; 96366; 96368; J0456; J0696; J3490; J7620

== ENCOUNTER 2024-01-25 18:41 | Emergency (ER) | payer OTHER, SELFPAY ==
[2024-01-25 19:48] LABS: #Basophils Less than 0.03 10x3/uL (0.0-0.2); %Basophils 0.2 % (0.0-1.0); %Eosinophils 1.9 % (0.0-10.0); %Lymphocytes 20.3 % (21.0-51.0); %Monocytes 7.7 % (0.0-10.0); %Neutrophils 69.5 % (42.0-75.0); Hematocrit 44.4 % (36.0-47.0); Hemoglobin 13.7 g/dL (12.0-16.0); Mean Corpuscular HGB CONC 30.9 g/dL (32.0-36.0); Mean Corpuscular Hemoglobin 26.4 pg (27.0-31.0); Mean Corpuscular Volume 85.5 fL (78.0-98.0); Mean Platelet Volume 10.2 fL (7.4-10.4); Platelet Count 338 10x3/uL (130-400); RBC Distribution Width 15.2 % (11.5-14.5); Red Blood Cell (RBC) Count 5.19 mill/uL (4.20-5.40)
[2024-01-25 20:03] LABS: Globulin 4.1 g/dL (2.4-3.5)
[2024-01-25 20:07] LABS: ALT (SGPT) 14 U/L (8-55); AST (SGOT) 13 U/L (5-34); Albumin 3.2 g/dL (3.5-5.0); Alkaline Phosphatase 79 U/L (40-110); Anion Gap 14 mmol/L (10-20); BUN (Urea Nitrogen) 10 mg/dL (7.0-18.7); Bilirubin, Total 0.5 mg/dL (0.2-1.2); Calc. Creatinine Clearance 0 mL/min (70-130); Calcium 9.1 mg/dL (7.8-10.44); Carbon Dioxide 24 mmol/L (22-29); Chloride 106 mmol/L (98-107); Estimated GFR 100; Glucose 88 mg/dL (70-105); Potassium 3.6 mmol/L (3.5-5.1); Protein, Total 7.3 g/dL (6.0-8.3); Sodium 140 mmol/L (136-145)
[2024-01-25 20:45] LABS: Bacteria/HPF None Seen HPF (None Seen); Bilirubin Negative (Negative); Blood, Urine 1+ (Negative); CAUTI Indications for Culture Dysuria,urgency,freq; Clarity Clear (Clear); Glucose, Urine (Dipstick) Normal (Negative); Ketone, Urine Negative (Negative); Leukocyte Negative Leu/uL (Negative); Mucous/LPF Rare LPF (<2+); Nitrite Negative (Negative); Protein, Urine (Dipstick) 100 mg/dL (Neg-Trace); RBC/HPF 0-3 HPF (0-3); Specific Gravity, Urine 1.024 (1.002-1.036); Urobilinogen Normal mg/dL (Less than 2); WBC/HPF 0-3 HPF (0-3); pH, Urine 5.5 (5.0-9.0)
[2024-01-25 20:46] LABS: Urine Culture Reflex No No
== END 2024-01-25 23:17 | disposition home or self-care (01) ==
LOC: ERS 18:41
DX: K46.9 Unspecified abdominal hernia without obstruction or gangrene (principal); H10.89 Other conjunctivitis; R35.0 Frequency of micturition
CPT/HCPCS: 36415; 74176; 80053; 81001; 85025

== ENCOUNTER 2024-09-21 13:47 | Inpatient (IN) | payer OTHER ==
[2024-09-21] MEDS ORDERED: Magnesium 2 GM/50 ML BAG (IN WATER) ONE (13:52)
[2024-09-21] MEDS ORDERED: methylPREDNISolone Sod Succ/PF 125 MG/2 ML VIAL ONE (13:54)
[2024-09-21] MEDS ORDERED: Budesonide 0.5 MG/2 ML NEB ONE (13:58)
[2024-09-21] MEDS ORDERED: Albuterol 2.5 MG (3 mL) NEB ONE (13:58)
[2024-09-21 14:31] LABS: #Basophils 0.06 10x3/uL (0.0-0.2); %Basophils 0.4 % (0.0-1.0); %Eosinophils 0.2 % (0.0-10.0); %Lymphocytes 6.6 % (21.0-51.0); %Monocytes 3.3 % (0.0-10.0); %Neutrophils 88.9 % (42.0-75.0); Hematocrit 49.1 % (36.0-47.0); Hemoglobin 14.8 g/dL (12.0-16.0); Mean Corpuscular HGB CONC 30.1 g/dL (32.0-36.0); Mean Corpuscular Hemoglobin 26.1 pg (27.0-31.0); Mean Corpuscular Volume 86.6 fL (78.0-98.0); Mean Platelet Volume 10.2 fL (7.4-10.4); Platelet Count 456 10x3/uL (130-400); RBC Distribution Width 15.9 % (11.5-14.5); Red Blood Cell (RBC) Count 5.67 mill/uL (4.20-5.40)
[2024-09-21 14:52] LABS: ALT (SGPT) 16 U/L (8-55); AST (SGOT) 16 U/L (5-34); Albumin 3.4 g/dL (3.5-5.0); Alkaline Phosphatase 88 U/L (40-110); Anion Gap 14 mmol/L (10-20); BUN (Urea Nitrogen) 12 mg/dL (7.0-18.7); Bilirubin, Total 0.5 mg/dL (0.2-1.2); Calc. Creatinine Clearance 0 mL/min (70-130); Calcium 8.8 mg/dL (7.8-10.44); Carbon Dioxide 28 mmol/L (22-29); Chloride 103 mmol/L (98-107); Estimated GFR 101; Globulin 4.7 g/dL (2.4-3.5); Glucose 126 mg/dL (70-105); Magnesium 2.1 mg/dL (1.6-2.6); Potassium 3.9 mmol/L (3.5-5.1); Protein, Total 8.1 g/dL (6.0-8.3); Sodium 141 mmol/L (136-145)
[2024-09-21] MEDS ORDERED: Sodium Chloride 0.9% 100 ML ONE (14:57)
[2024-09-21] MEDS ORDERED: Piperacillin/Tazobactam 3.375 GM VIAL ONE (14:57)
[2024-09-21 15:02] LABS: Troponin I 0.024 ng/mL (< 0.028)
[2024-09-21 15:21] LABS: Actual Bicarbonate (HCO3v) 29.7 mEq/L (22-28); Analyzer IN Cardio ER; Base Excess 0.9 mEq/L (-2.0 to +3.0); Calcium, Ionized (venous) 1.08 mmol/L (1.16-1.32); Chloride (VBG) 100 mmol/L (98-106); Hematocrit-VBG 45 % (36.0-47.0); Hemoglobin (Hb) 15.4 g/dL (11.7-15.5); Sodium 139 mmol/L (133-146); pH (venous) 7.273 (7.32-7.43)
[2024-09-21 15:22] LABS: Potassium (VBG) 6.13 mmol/L (3.70-5.30)
[2024-09-21] MEDS ORDERED: Vancomycin (BATCH) 2 GM in Premix 1 BAG IVPB SCH (15:30)
[2024-09-21] MEDS ORDERED: Ondansetron PF 4 MG/2 ML Vial IVP PRN (16:01)
[2024-09-21] MEDS ORDERED: Senokot S 8.6-50 MG TAB PO PRN (16:01)
[2024-09-21] MEDS ORDERED: Acetaminophen 325 MG TAB PO PRN (16:01)
[2024-09-21] MEDS ORDERED: traMADol HCl 50 MG TAB PO PRN ×2 (16:01)
[2024-09-21] MEDS ORDERED: Furosemide 40 MG (4 mL) VIAL ONE (16:12)
[2024-09-21] MEDS: Furosemide 40 MG (4 mL) VIAL SLOW IVP SCH (16:15)
[2024-09-21] MEDS ORDERED: guaiFENesin 200 MG TAB PO PRN (16:15)
[2024-09-21] MEDS: Ipratropium/Albuterol 3 ML NEB EZPAP SCH ×2 (17:01→18:29)
[2024-09-21] MEDS: methylPREDNISolone Sod Succ/PF 125 MG/2 ML VIAL IVP SCH (18:20)
[2024-09-21] MEDS: cefTRIAXone\\ROCEPHIN 1 GM in Sodium Chloride 0.9% 100 ML IVPB SCH (18:21)
[2024-09-21] MEDS: Doxycycline 100 MG CAP PO SCH (20:10)
[2024-09-22 03:37] LABS: #Basophils 0.03 10x3/uL (0.0-0.2); #Eosinophils Less than 0.03 10x3/uL (0.0-0.7); %Basophils 0.2 % (0.0-1.0); %Lymphocytes 7.1 % (21.0-51.0); %Monocytes 0.9 % (0.0-10.0); %Neutrophils 91.2 % (42.0-75.0); Hematocrit 48.1 % (36.0-47.0); Hemoglobin 14.2 g/dL (12.0-16.0); Mean Corpuscular HGB CONC 29.5 g/dL (32.0-36.0); Mean Corpuscular Hemoglobin 26.3 pg (27.0-31.0); Mean Corpuscular Volume 89.2 fL (78.0-98.0); Mean Platelet Volume 10.2 fL (7.4-10.4); Platelet Count 400 10x3/uL (130-400); RBC Distribution Width 15.9 % (11.5-14.5); Red Blood Cell (RBC) Count 5.39 mill/uL (4.20-5.40)
[2024-09-22 04:02] LABS: ALT (SGPT) 14 U/L (8-55); AST (SGOT) 10 U/L (5-34); Alkaline Phosphatase 76 U/L (40-110); Anion Gap 14 mmol/L (10-20); BUN (Urea Nitrogen) 16 mg/dL (7.0-18.7); Bilirubin, Total 0.4 mg/dL (0.2-1.2); Calc. Creatinine Clearance 163 mL/min (70-130); Calcium 8.4 mg/dL (7.8-10.44); Carbon Dioxide 27 mmol/L (22-29); Chloride 104 mmol/L (98-107); Estimated GFR 78; Globulin 4.3 g/dL (2.4-3.5); Glucose 155 mg/dL (70-105); Magnesium 2.1 mg/dL (1.6-2.6); Potassium 4.3 mmol/L (3.5-5.1); Protein, Total 7.3 g/dL (6.0-8.3); Sodium 141 mmol/L (136-145)
[2024-09-22 04:59] VITALS: BMI 53.6
[2024-09-22] MEDS: Furosemide 40 MG (4 mL) VIAL SLOW IVP SCH (05:04)
[2024-09-22] MEDS: Enoxaparin 40 MG (0.4 mL) SYRINGE SC SCH (09:24)
[2024-09-22] MEDS: Pantoprazole 40 MG VIAL IVP SCH (09:25)
[2024-09-22] MEDS: Ipratropium/Albuterol 3 ML NEB EZPAP SCH (10:24)
[2024-09-22] MEDS: Mometasone 200 MCG/Formoterol 5 MCG 120 PUFF INHALER INH SCH (20:08)
[2024-09-22] MEDS: Montelukast Sodium 10 mg Tablet PO SCH (20:41)
[2024-09-23] MEDS: Pantoprazole DR 40 MG TAB PO SCH (09:26)
[2024-09-23 11:00] LABS: Actual Bicarbonate (HCO3v) 33.8 mEq/L (22-28); Base Excess 8.5 mEq/L (-2.0 to +3.0); Calcium, Ionized (venous) 1.13 mmol/L (1.16-1.32); Chloride (VBG) 97 mmol/L (98-106); Hematocrit-VBG 43 % (36.0-47.0); Hemoglobin (Hb) 14.6 g/dL (11.7-15.5); Sodium 139 mmol/L (133-146); pH (venous) 7.459 (7.32-7.43)
[2024-09-23] MEDS: methylPREDNISolone Sod Succ 40 MG VIAL IVP SCH (20:30)
[2024-09-24 05:35] LABS: Actual Bicarbonate (HCO3v) 35.9 mEq/L (22-28); Base Excess 8.1 mEq/L (-2.0 to +3.0); Calcium, Ionized (venous) 1.13 mmol/L (1.16-1.32); Chloride (VBG) 97 mmol/L (98-106); Hematocrit-VBG 42 % (36.0-47.0); Hemoglobin (Hb) 14.4 g/dL (11.7-15.5); Potassium (VBG) 4.73 mmol/L (3.70-5.30); Sodium 139 mmol/L (133-146); pH (venous) 7.367 (7.32-7.43)
[2024-09-24 05:47] LABS: Hematocrit 44.2 % (36.0-47.0); Hemoglobin 13.3 g/dL (12.0-16.0); Mean Corpuscular HGB CONC 30.1 g/dL (32.0-36.0); Mean Corpuscular Hemoglobin 26.2 pg (27.0-31.0); Mean Platelet Volume 10.1 fL (7.4-10.4); Platelet Count 384 10x3/uL (130-400); RBC Distribution Width 16.4 % (11.5-14.5); Red Blood Cell (RBC) Count 5.08 mill/uL (4.20-5.40)
[2024-09-24 06:15] LABS: Anion Gap 12 mmol/L (10-20); BUN (Urea Nitrogen) 21 mg/dL (7.0-18.7); Calc. Creatinine Clearance 181 mL/min (70-130); Calcium 8.9 mg/dL (7.8-10.44); Carbon Dioxide 32 mmol/L (22-29); Chloride 100 mmol/L (98-107); Estimated GFR 85; Glucose 126 mg/dL (70-105); Potassium 4.6 mmol/L (3.5-5.1); Sodium 139 mmol/L (136-145)
[2024-09-25] MEDS: Cefdinir 300 MG CAP PO SCH (20:32)
[2024-09-26] MEDS: predniSONE 20 MG TAB PO SCH (08:14)
[2024-09-27 17:03] VITALS: BMI 58.5
[2024-09-28 05:12] LABS: #Basophils Less than 0.03 10x3/uL (0.0-0.2); %Basophils 0.1 % (0.0-1.0); %Eosinophils 1.4 % (0.0-10.0); %Lymphocytes 28.3 % (21.0-51.0); %Monocytes 7.3 % (0.0-10.0); %Neutrophils 62.6 % (42.0-75.0); Hemoglobin 12.8 g/dL (12.0-16.0); Mean Corpuscular HGB CONC 29.8 g/dL (32.0-36.0); Mean Corpuscular Hemoglobin 26.1 pg (27.0-31.0); Mean Corpuscular Volume 87.6 fL (78.0-98.0); Mean Platelet Volume 10.6 fL (7.4-10.4); Platelet Count 327 10x3/uL (130-400); RBC Distribution Width 15.9 % (11.5-14.5); Red Blood Cell (RBC) Count 4.91 mill/uL (4.20-5.40)
[2024-09-28 05:42] LABS: Anion Gap 9 mmol/L (10-20); BUN (Urea Nitrogen) 15 mg/dL (7.0-18.7); Calc. Creatinine Clearance 208 mL/min (70-130); Calcium 8.6 mg/dL (7.8-10.44); Carbon Dioxide 35 mmol/L (22-29); Chloride 102 mmol/L (98-107); Estimated GFR 95; Glucose 101 mg/dL (70-105); Potassium 4.4 mmol/L (3.5-5.1); Sodium 142 mmol/L (136-145)
[2024-09-28] MEDS: NIFEdipine XL 60 MG ER.TAB PO SCH (08:28)
[2024-09-28 15:35] VITALS: BP 114/71; TEMP 98.5
== END 2024-09-28 15:39 | disposition home or self-care (01) | DRG 193 ==
LOC: ERS 13:47 → ERHOLD 15:26 → CCU 16:36 → IMCU/EMU 09-22 14:57 → T4-A 09-23 12:49
PROVIDERS: ADMIT Student in an Organized Health Care Education/Training Program; ATTEND Internal Medicine
DX: J18.9 Pneumonia, unspecified organism (principal); J81.0 Acute pulmonary edema; J96.21 Acute and chronic respiratory failure with hypoxia; J96.22 Acute and chronic respiratory failure with hypercapnia; E66.2 Morbid (severe) obesity with alveolar hypoventilation; Z68.43 Body mass index [BMI] 50.0-59.9, adult; J45.902 Unspecified asthma with status asthmaticus; I11.0 Hypertensive heart disease with heart failure; I50.9 Heart failure, unspecified; Z90.49 Acquired absence of other specified parts of digestive tract; Z98.51 Tubal ligation status; Z87.891 Personal history of nicotine dependence
CPT/HCPCS: 36415; 36416; 71045; 80048; 80053; 82805; 83605; 83735; 83880; 84484; 85025; 85027; 85379; 87040; 93005; 93306; 94640; 94660; 96365; 96375; J0696; J1650; J1940; J2470; J2543; J2919; J3370; J3475; J7512; J7611; J7620; J7626